=== PATIENT | male | born 1975 | race Caucasian/White ===

== ENCOUNTER 2019-09-26 06:40 | Emergency (ER) | payer OTHER ==
--- NOTE | 2019-09-26 07:18 | EDM.PDOC ---
ED HPI GENERAL MEDICAL PROBLEM - General Chief Complaint: Genitourinary Problem Stated Complaint: LEFT SIDE PAIN Time Seen by Provider: 09/26/19 07:07 Source of Information: Reports: Patient History Limitations: Reports: No Limitations - History of Present Illness INITIAL COMMENTS - FREE TEXT/NARRATIVE: Patient presents because of sudden onset left lower quadrant and flank pain approximately 0200 hrs. today. He has been camping since yesterday and awakened in his tent suddenly because of this pain. He's never had anything like it before. It has come on and stayed in one area. Nothing like it on opposite side. No nausea or vomiting. He hasn't noticed anything different with urine in terms of appearance but he has had an urge to urinate more since symptoms started and when he goes into the bathroom minimal amounts come out. Bowel movements are normal. No fever or chills. No other recent illnesses or injuries. Onset: Today Onset Time: 02:00 Duration: Constant Location: Reports: Abdomen (LLQ) Improves with: Reports: None Worsens with: Reports: None Context: Reports: Other (Sleeping) left sided abd/flank Pain Score (Numeric/FACES): 5 - Related Data Allergies Allergy/AdvReac Type Severity Reaction Status Date / Time sulfamethoxazole Allergy Other Verified 09/26/19 06:54 [From Bactrim] trimethoprim [From Bactrim] Allergy Other Verified 09/26/19 06:54 Home Meds: Home Meds NK [No Known Home Meds] 09/26/19 [History] Past Medical History Musculoskeletal History: Reports: Fracture Social & Family History - Caffeine Use Caffeine Use: Reports: Coffee - Recreational Drug Use Recreational Drug Use: No ED ROS GENERAL - Review of Systems Review Of Systems: See Below Constitutional: Reports: No Symptoms HEENT: Reports: No Symptoms Respiratory: Reports: No Symptoms Cardiovascular: Reports: No Symptoms GI/Abdominal: Reports: Abdominal Pain. Denies: Constipation, Diarrhea, Melena, Nausea, Vomiting : Reports: Frequency ED EXAM, RENAL/ - Physical Exam Exam: See Below Exam Limited By: No Limitations General Appearance: Alert, Mild Distress Respiratory/Chest: No Respiratory Distress Cardiovascular: Regular Rate, Rhythm GI/Abdominal: Normal Bowel Sounds, Soft, Tender (LLQ/inguinal region, no hernias ) (Male) Exam: No Hernia Back Exam: CVA Tenderness (L) (Minimal) Course - Vital Signs Last Recorded V/S: Last Vital Signs Temp 36.1 C 09/26/19 06:52 Pulse 77 09/26/19 06:52 Resp 20 09/26/19 06:52 BP 154/98 H 09/26/19 06:52 Pulse Ox 98 09/26/19 06:52 - Orders/Labs/Meds Orders: Active Orders 24 hr Category Date Time Status Abdomen 1V Upright [CR] Stat Exams 09/26/19 07:19 Ordered Labs: Laboratory Tests 09/26/19 09/26/19 09/26/19 Range/Units 07:03 07:44 07:44 WBC 10.0 (4.5-11.0) K/uL RBC 5.04 (4.30-5.90) M/uL Hgb 15.1 H (12.0-15.0) g/dL Hct 45.3 (40.0-54.0) % MCV 90 (80-98) fL MCH 30 (27-31) pg MCHC 33 (32-36) % Plt Count 339 (150-400) K/uL Neut % (Auto) 86 H (36-66) % Lymph % (Auto) 8 L (24-44) % [place] % (Auto) 5 (2-6) % Eos % (Auto) 1 L (2-4) % Baso % (Auto) 0 (0-1) % Sodium 143 (140-148) mmol/L Potassium 4.0 (3.6-5.2) mmol/L Chloride 104 (100-108) mmol/L Carbon Dioxide 28 (21-32) mmol/L Anion Gap 10.8 (5.0-14.0) mmol/L BUN 17 (7-18) mg/dL Creatinine 0.9 (0.8-1.3) mg/dL Est Cr Clr Drug Dosing 81.73 mL/min Estimated GFR (MDRD) > 60 (>60) Glucose 103 (74-106) mg/dL Calcium 9.0 (8.5-10.1) mg/dL Urine Color Yellow (YELLOW) Urine Appearance Clear (CLEAR) Urine pH 7.0 (5.0-8.0) Ur Specific Sobieski >= 1.030 (1.008-1.030) Urine Protein Negative (NEGATIVE) mg/dL Urine Glucose (UA) Negative (NEGATIVE) mg/dL Urine Ketones Negative (NEGATIVE) mg/dL Urine Occult Blood Moderate H (NEGATIVE) Urine Nitrite Negative (NEGATIVE) Urine Bilirubin Negative (NEGATIVE) Urine Urobilinogen 0.2 (0.2-1.0) EU/dL Ur Leukocyte Esterase Negative (NEGATIVE) Urine RBC 10-20 H (0-5) Urine WBC 0-5 (0-5) Ur Epithelial Cells Few Amorphous Sediment Not seen Urine Bacteria Few Urine Mucus Not seen - Re-Assessments/Exams Free Text/Narrative Re-Assessment/Exam: 09/26/19 08:02 0756 hours, patient is requesting something for pain area he'll be given ketorolac 60 mg IM. He does have microscopic hematuria but other lab work is normal. He now describes some left flank and CVA pain as well. I will have them get a stone protocol abdomen/pelvis CT to look for stones. 09/26/19 08:57 CT scan shows a small 3 mm stone at the left ureterovesical junction. He is pain free after his Toradol dose. There is a tiny stone in the cortex of the right kidney as well. I reviewed findings with the patient including a couple of snapshot images. I recommend adequate fluid intake, ibuprofen 800 mg 3 times a day, straining all urine until stone passes. If he does not notice a stone in the next 3-5 days and is still having pain, he should return. If he feels worse in anyway, he should also return but I expect he is close to passing the stone at this time. 09/26/19 09:09 Departure - Departure Time of Disposition: 09:09 Disposition: Home, Self-Care 01 Clinical Impression: Kidney stone - Discharge Information Referrals: PCP,None [Primary Care Provider] - Forms: ED Department Discharge Additional Instructions: Strain all urine looking for a small granules that should be the stone. Kidney stones usually are made of calcium but it would be reasonable to return the stone to your primary care team to get it analyzed and see what it's made of. You may notice a little blood in the urine. Take ibuprofen 800 mg 3 times a day regularly until the stone passes. Usually once a stone passes into the bladder, pain is significantly reduced or gone for good. Sepsis Event Note (ED) - Evaluation Sepsis Screening Result: No Definite Risk - Focused Exam Vital Signs: Vital Signs Temp Pulse Resp BP Pulse Ox 09/26/19 06:52 36.1 C 77 20 154/98 H 98 - My Orders Last 24 Hours: My Active Orders 09/26/19 07:19 Abdomen 1V Upright [CR] Stat - Assessment/Plan Last 24 Hours: My Active Orders 09/26/19 07:19 Abdomen 1V Upright [CR] Stat
[2019-09-26] MEDS ORDERED: Ketorolac 60 MG/2 ML SDV IM ONE (07:55)
--- NOTE | 2019-09-26 09:07 | CRLCT ---
Indication: Left flank pain. Technique: CT from the lung bases to the pubic symphysis without intravenous contrast. Please note that all CT scans at this facility use dose modulation, iterative reconstruction, and/or weight-based dosing when appropriate to reduce radiation dose to as low as reasonably achievable. Comparison: None. Findings: Hepatobiliary: The liver demonstrates attenuation. The gallbladder is normal. Spleen: Normal. Pancreas: Normal. Adrenal glands: Right and left adrenal gland are normal. Kidneys: There is a 3 millimeter obstructing calculus at the left ureterovesicular junction, that causes moderate left hydronephrosis. Right kidney and right ureter are normal. Pelvis: The urinary bladder is normal. GI: The colon, small bowel, and stomach are normal. Vessels/lymph nodes: There is no intraperitoneal or retroperitoneal adenopathy. Vessels are normal. Soft tissues: There is no abdominal hernia. Bones: There are no lytic or blastic bone lesions. Lung bases: Clear Impression: 3 millimeter obstructing calculus at the left ureteral vesicular junction, which causes moderate left hydronephrosis. Please note that all CT scans at this facility use dose modulation, iterative reconstruction, and/or weight-based dosing when appropriate to reduce radiation dose to as low as reasonably achievable. Dictated by Royal Hameed MD @ Sep 26 2019 8:59AM Signed by Dr. Royal Hameed @ Sep 26 2019 9:05AM
--- NOTE | 2019-09-28 09:06 | CR ---
Abdomen 1V Upright CLINICAL HISTORY: Left lower quadrant pain FINDINGS: No free air is identified. Small chest gas pattern is nonacute. There is gas and feces in the colon. IMPRESSION: Nonacute intestinal gas pattern
== END 2019-09-26 10:53 | disposition home or self-care (01) ==
LOC: JP.ED 06:40
DX: N13.2 Hydronephrosis with renal and ureteral calculous obstruction (principal); Z88.2 Allergy status to sulfonamides
CPT/HCPCS: 36415; 74018; 74176; 80048; 81001; 85025; 96372; 99284; J1885